=== PATIENT | male | born 1960 | race Caucasian/White ===

== ENCOUNTER 2022-03-23 13:35 | Outpatient (CLI) | payer OTHER | END 2022-03-23 13:36 | disposition home or self-care (01) | LOC: CSHULT 13:35 | PROVIDERS: ATTEND Internal Medicine | DX: N20.0 Calculus of kidney (principal); N13.30 Unspecified hydronephrosis | CPT/HCPCS: 76770 ==

== ENCOUNTER 2024-05-28 09:16 | Outpatient (CLI) | payer OTHER | END 2024-05-28 09:17 | disposition home or self-care (01) | LOC: CSHCT 09:16 | PROVIDERS: ATTEND Urology | DX: N20.0 Calculus of kidney (principal); N40.1 Benign prostatic hyperplasia with lower urinary tract symptoms; N13.30 Unspecified hydronephrosis; K80.20 Calculus of gallbladder without cholecystitis without obstruction | CPT/HCPCS: 74176 ==